=== PATIENT | female | born 1980 | race Caucasian/White ===

== ENCOUNTER 2019-08-19 03:31 | Emergency (ER) | payer BC, OTHER ==
[~2019-08-19] VITALS: Ht 162.6 cm; Wt 66.6 kg
--- NOTE | 2019-08-19 03:54 | NUR ---
pt up to restroom at this time of ua
--- NOTE | 2019-08-19 04:03 | NUR ---
UA OBTAINED AND TUBED TO LAB
[2019-08-19 04:13] LABS: BASOPHILS # (AUTO) 0.02 x10^3/uL (0-0.1); BASOPHILS % (AUTO) 1 % (0-1); EOSINOPHILS # (AUTO) 0.44 x10^3/uL (0-0.4); EOSINOPHILS % (AUTO) 11 % (1-7); LYMPHOCYTES # (AUTO) 1.77 x10^3/uL (1-3.4); LYMPHOCYTES % (AUTO) 43 % (22-44); MD NO; MEAN CORPUSCULAR HEMOGLOBIN 31.9 pg (27.0-34.8); MEAN CORPUSCULAR HGB CONC 33.8 g/dL (32.4-35.8); MEAN CORPUSCULAR VOLUME 94.4 fL (80-100); MEAN PLATELET VOLUME 7.8 fL (7.4-10.4); MONOCYTES # (AUTO) 0.39 x10^3/uL (0.2-0.8); MONOCYTES % (AUTO) 9 % (2-9); NEUTROPHILS # (AUTO) 1.48 x10^3/uL (1.8-6.8); NEUTROPHILS % (AUTO) 36 % (42-75); PLATELET COUNT 216 x10^3/uL (130-400); RED BLOOD COUNT 4.61 x10^6/uL (3.82-5.3); RED CELL DISTRIBUTION WIDTH 12.9 % (9.6-15.2)
[2019-08-19 04:20] LABS: HCG UR SG 1.023 (1.003-1.030); MICROSCOPIC AUTO
[2019-08-19 04:25] LABS: ALANINE AMINOTRANSFERASE 25 U/L (12-78); ANION GAP 4 mmol/L (5-15); CALCIUM 8.7 mg/dL (8.5-10.1); CHLORIDE 106 mmol/L (98-107); CREATININE 0.87 mg/dL (0.55-1.02)
[2019-08-19 04:25] LABS: CULTURE INDICATED? YES
[2019-08-19 04:27] LABS: ALKALINE PHOSPHATASE 71 U/L (45-117); BILIRUBIN,TOTAL 0.5 mg/dL (0.2-1.0); TOTAL PROTEIN 7.7 g/dL (6.4-8.2)
[2019-08-19] MEDS ORDERED: CEFDINIR 300 MG CAPSULE PO ONE (04:30)
[2019-08-19] MEDS ORDERED: CEFDINIR 300 MG CAPSULE ONE (04:38)
[2019-08-19 04:41] VITALS: BP 132/80
[2019-08-19] MEDS ORDERED: LEVO88TA4 PO (04:41)
--- NOTE | 2019-08-19 04:55 | NUR ---
TASK RN: RESULTS IN, PT CLEARED FOR DISCHARGE. PT DENIES NEED FOR PAIN MEDICATIONS, AMBULATING WELL UPON DEPARTURE.
[2019-08-19] MEDS ORDERED: ACETAMINOPHEN 500 MG TABLET PO ONE (05:00)
[2019-08-19] MEDS ORDERED: IBUPROFEN 600 MG TABLET PO ONE (05:00)
== END 2019-08-19 05:18 | disposition home or self-care (01) ==
LOC: ED 05:00
DX: N30.00 Acute cystitis without hematuria (principal); E03.9 Hypothyroidism, unspecified
CPT/HCPCS: 36415; 80053; 81001; 81025; 85025; 87077; 87086; 87186; 99283